=== PATIENT | male | born 1940 | race Caucasian/White ===

== ENCOUNTER 2016-09-29 17:43 | Inpatient (IN) | payer OTHER ==
[2016-09-29] VITALS (7 sets, daily range): BP systolic 126–156; BP diastolic 38–63
[~2016-09-29] VITALS: Ht 172.7 cm; Wt 64.3 kg
[~2016-09-29 17:43] MED LIST: ALBU8.5H3 INH; ASCO10004 PO; ASPI-770 PO; ATOR40TA PO; CARV6.2512 PO; CITA20TA9 PO; GABA300C10 PO; IBUP200C PO; LORA10TA75 PO; MULT-6 PO; MULT1TAB13 PO; OXYC-229 PO; OXYC15TA PO; PANT40TA5 PO; QUIN40TA7 PO; TIOT18CA INH; TRAM50TA2 PO; VERA180C2 PO
[2016-09-29] MEDS ORDERED: SODIUM CHLORIDE 0.9% 1,000 ML IV ONE (18:19)
[2016-09-29] MEDS ORDERED: PANTOPRAZOLE 40 MG IV IVPush ONE (18:30)
[2016-09-29] MEDS ORDERED: SODIUM CHLORIDE FLUSH 10ML SYR IVF ONE (18:30)
[2016-09-29] MEDS ORDERED: ONDANSETRON 2MG/ML, 2ML IVPush ONE (18:30)
[2016-09-29] MEDS ORDERED: ONDANSETRON 2MG/ML, 2ML ONE (18:51)
[2016-09-29] MEDS ORDERED: PANTOPRAZOLE 40 MG IV ONE (18:51)
[2016-09-29] MEDS: PANTOPRAZOLE 80 MG in SODIUM CHLORIDE 0.9% 100 ML IV SCH ×2 (18:55→21:00)
[2016-09-29 19:11] LABS: IS PT STATUS REG ER OR PRE ER? YES
[2016-09-29 19:15] LABS: ASPARTATE AMINO TRANSFERASE 13 U/L (15-37); BLOOD UREA NITROGEN 20 mg/dL (7-18)
[2016-09-29 19:32] LABS: ANISOCYTOSIS 2+
[2016-09-29 19:34] LABS: OVALOCYTES 1+; POIKILOCYTOSIS 2+; POLYCHROMASIA 1+
[2016-09-29 19:38] LABS: ACANTHOCYTES 1+; HYPOCHROMIA 1+
[2016-09-29 19:39] LABS: GIANT PLATELETS 1+; LARGE PLATELETS 1+
[2016-09-29] MEDS ORDERED: OMNIPAQUE 350 MG/ML, 100ML BOTTLE ONE (20:35)
[2016-09-29] MEDS ORDERED: POTASSIUM CHLORIDE 40 MEQ in SODIUM CHLORIDE 0.9% 500 ML IV ONE (21:00)
[2016-09-29] MEDS: GABAPENTIN 300 MG CAPSULE PO SCH (21:00)
[2016-09-29] MEDS ORDERED: DEXTROSE 4 GM TAB.CHEW PO PRN (21:00)
[2016-09-29] MEDS ORDERED: CARVEDILOL 6.25 MG TABLET PO SCH (21:00)
[2016-09-29] MEDS ORDERED: GLUCAGON 1 MG IM PRN (21:00)
[2016-09-29] MEDS ORDERED: DEXTROSE 50%, 50ML SYRINGE IVPush PRN (21:00)
[2016-09-29] MEDS ORDERED: OXYcodone IR 5MG TABLET PO PRN (21:00)
[2016-09-29] MEDS: SODIUM CHLORIDE 0.9% 1,000 ML IV SCH (23:24)
[2016-09-29] MEDS: SODIUM CHLORIDE FLUSH 10ML SYR IVF SCH (23:25)
[2016-09-29] MEDS ORDERED: GOLYTELY 4,000ML ORAL.SOL PO ONE (23:55)
[2016-09-30] VITALS (9 sets, daily range): BP systolic 120–158; BP diastolic 38–74
[2016-09-30] MEDS: PANTOPRAZOLE 80 MG in SODIUM CHLORIDE 0.9% 100 ML IV SCH ×3 (04:36→20:44)
[2016-09-30] MEDS: ATORVASTATIN 40 MG TABLET PO SCH ×2 (04:37→21:53)
[2016-09-30] MEDS: CARVEDILOL 6.25 MG TABLET PO SCH ×2 (04:37→04:42)
[2016-09-30 04:59] LABS: ASPARTATE AMINO TRANSFERASE 14 U/L (15-37); BLOOD UREA NITROGEN 14 mg/dL (7-18)
[2016-09-30] MEDS ORDERED: IPRATROPIUM 0.5 MG/2.5 ML INHA NPPB SCH (05:00)
[2016-09-30] MEDS: INSULIN ASPART 100 UNITS/ML, PEN SQ-INSULIN SCH ×5 (05:43→21:00)
[2016-09-30] MEDS: SODIUM CHLORIDE 0.9% 1,000 ML IV SCH ×2 (08:02→21:22)
[2016-09-30] MEDS: SODIUM CHLORIDE FLUSH 10ML SYR IVF SCH ×2 (09:00→21:51)
[2016-09-30] MEDS: ALBUTEROL/IPRATROPIUM 2.5MG/0.5MG, 3 ML NPPB SCH ×2 (09:00→20:50)
[2016-09-30] MEDS ORDERED: MORPHINE SULFATE 4 MG/ML, 1ML IVPush PRN (10:30)
[2016-09-30] MEDS: GABAPENTIN 300 MG CAPSULE PO SCH ×3 (11:12→21:53)
[2016-10-01 03:23] VITALS: BP 137/58
[2016-10-01] MEDS: PANTOPRAZOLE 80 MG in SODIUM CHLORIDE 0.9% 100 ML IV SCH ×2 (03:26→21:10)
[2016-10-01 03:41] LABS: BLOOD UREA NITROGEN 10 mg/dL (7-18)
[2016-10-01 03:46] LABS: DIFF TOTAL CELLS COUNTED 100 CELL DIFF
[2016-10-01 03:56] LABS: VERIFY COUNTS? YES
[2016-10-01 03:57] LABS: ANISOCYTOSIS 1+; HYPOCHROMIA 1+
[2016-10-01 03:58] LABS: OVALOCYTES 1+; POIKILOCYTOSIS 1+
[2016-10-01 03:59] LABS: GIANT PLATELETS 1+; LARGE PLATELETS 1+
[2016-10-01] MEDS: INSULIN ASPART 100 UNITS/ML, PEN SQ-INSULIN SCH ×4 (07:00→21:50)
[2016-10-01 07:24] VITALS: BP 133/52
[2016-10-01] MEDS: SODIUM CHLORIDE FLUSH 10ML SYR IVF SCH ×2 (08:45→21:10)
[2016-10-01] MEDS: GABAPENTIN 300 MG CAPSULE PO SCH ×3 (08:47→21:10)
[2016-10-01] MEDS: CARVEDILOL 6.25 MG TABLET PO SCH ×2 (08:51→17:57)
[2016-10-01] MEDS ORDERED: PHENYLEPHRINE 10 MG/ML ONE (11:18)
[2016-10-01] MEDS ORDERED: PROPOFOL 10 MG/ML, 20ML ONE (11:18)
[2016-10-01] MEDS ORDERED: METOCLOPRAMIDE 5 MG/ML, 2ML IV PRN (11:30)
[2016-10-01] MEDS ORDERED: OXYcodone 5 MG/5 ML ORAL.SOL UDC PO PRN (11:30)
[2016-10-01] MEDS ORDERED: hydrALAzine 20 MG/ML, 1ML IV PRN (11:30)
[2016-10-01] MEDS ORDERED: ACETAMINOPHEN 325 MG TABLET PO PRN (11:30)
[2016-10-01] MEDS ORDERED: PROMETHAZINE 25 MG/ML, 1ML IV PRN (11:30)
[2016-10-01] MEDS ORDERED: ONDANSETRON 2MG/ML, 2ML IVPush PRN (11:30)
[2016-10-01] MEDS ORDERED: LABETALOL 5MG/ML, 20ML IV PRN (11:30)
[2016-10-01] MEDS ORDERED: MIDAZOLAM 1 MG/ML, 2ML IV PRN (11:30)
[2016-10-01] MEDS ORDERED: MEPERIDINE/PF 25MG/0.5ML IVPush PRN (11:30)
[2016-10-01] MEDS ORDERED: FENTANYL PF 100 MCG/2ML IV PRN (11:30)
[2016-10-01] MEDS ORDERED: HYDROmorphone 1 MG/ML, 1ML IV PRN (11:30)
[2016-10-01 13:07] VITALS: BP 142/58
[2016-10-01] MEDS: SODIUM CHLORIDE 0.9% 1,000 ML IV SCH (17:57)
[2016-10-01 20:10] VITALS: BP 142/57
[2016-10-01] MEDS: ATORVASTATIN 40 MG TABLET PO SCH (21:10)
[2016-10-02 02:56] VITALS: BP 130/50
[2016-10-02 03:13] LABS: BLOOD UREA NITROGEN 10 mg/dL (7-18)
[2016-10-02 03:27] LABS: DIFF TOTAL CELLS COUNTED 100 CELL DIFF
[2016-10-02 03:33] LABS: VERIFY COUNTS? YES
[2016-10-02 03:35] LABS: ANISOCYTOSIS 1+; GIANT PLATELETS 1+; HYPOCHROMIA 1+; LARGE PLATELETS 1+; OVALOCYTES 1+; POIKILOCYTOSIS 1+
[2016-10-02] MEDS: CARVEDILOL 6.25 MG TABLET PO SCH (05:21)
[2016-10-02] MEDS: PANTOPRAZOLE 80 MG in SODIUM CHLORIDE 0.9% 100 ML IV SCH (05:27)
[2016-10-02] MEDS: INSULIN ASPART 100 UNITS/ML, PEN SQ-INSULIN SCH (07:00)
[2016-10-02 08:00] VITALS: BP 126/49
[2016-10-02] MEDS ORDERED: ALBUTEROL/IPRATROPIUM 2.5MG/0.5MG, 3 ML NPPB PRN (09:00)
[2016-10-02] MEDS: SODIUM CHLORIDE FLUSH 10ML SYR IVF SCH (09:00)
[2016-10-02] MEDS: SODIUM CHLORIDE 0.9% 1,000 ML IV SCH (09:42)
[2016-10-02] MEDS: GABAPENTIN 300 MG CAPSULE PO SCH (09:42)
[2016-10-02 12:41] VITALS: BP 143/61
== END 2016-10-02 13:37 | disposition home or self-care (01) | DRG 393 ==
LOC: ED 19:47 → EDIP 19:50 → CCU 09-30 07:06 → 3NW 09-30 11:46
PROVIDERS: ADMIT Internal Medicine; ATTEND Internal Medicine
PROC: 30233N1 Transfusion of Nonautologous Red Blood Cells into Peripheral Vein, Percutaneous Approach (ICD-10-PCS; 2016-09-29)
PROC: 0DBN8ZZ Excision of Sigmoid Colon, Via Natural or Artificial Opening Endoscopic (ICD-10-PCS; principal; 2016-10-01 11:00)
DX: D12.5 Benign neoplasm of sigmoid colon (principal); E43 Unspecified severe protein-calorie malnutrition; D62 Acute posthemorrhagic anemia; K55.9 Vascular disorder of intestine, unspecified; J98.11 Atelectasis; K21.9 Gastro-esophageal reflux disease without esophagitis; E87.6 Hypokalemia; D12.0 Benign neoplasm of cecum; D75.89 Other specified diseases of blood and blood-forming organs; E11.21 Type 2 diabetes mellitus with diabetic nephropathy; E11.40 Type 2 diabetes mellitus with diabetic neuropathy, unspecified; E11.51 Type 2 diabetes mellitus with diabetic peripheral angiopathy without gangrene; E27.9 Disorder of adrenal gland, unspecified; E78.5 Hyperlipidemia, unspecified; F10.21 Alcohol dependence, in remission; F17.200 Nicotine dependence, unspecified, uncomplicated; I10 Essential (primary) hypertension; I70.1 Atherosclerosis of renal artery; J44.9 Chronic obstructive pulmonary disease, unspecified; I51.7 Cardiomegaly; I34.0 Nonrheumatic mitral (valve) insufficiency; K57.30 Diverticulosis of large intestine without perforation or abscess without bleeding; K64.8 Other hemorrhoids; K80.20 Calculus of gallbladder without cholecystitis without obstruction; E55.9 Vitamin D deficiency, unspecified; M19.90 Unspecified osteoarthritis, unspecified site; M48.06 Spinal stenosis, lumbar region; Z80.8 Family history of malignant neoplasm of other organs or systems; Z87.01 Personal history of pneumonia (recurrent); Z88.0 Allergy status to penicillin; Z82.49 Family history of ischemic heart disease and other diseases of the circulatory system
CPT/HCPCS: 36415; 71010; 74174; 80048; 80053; 81003; 82607; 82746; 82962; 83605; 83690; 83735; 84443; 84484; 85014; 85018; 85025; 85610; 85730; 86677; 86850; 86900; 86923; 87081; 88305; 93005; 93306; 94640; 96365; 96366; 96368; 96375; J2405; J2704; J3480; J7620; Q9967; C9113; J2370; J7030; J7040; P9016

== ENCOUNTER 2016-11-14 14:24 | Inpatient (IN) | payer OTHER ==
[~2016-11-14] VITALS: Ht 172.7 cm; Wt 59.8 kg
[2016-11-14] MEDS ORDERED: SODIUM CHLORIDE 0.9% 1,000 ML IV ONE (14:41)
[2016-11-14] MEDS ORDERED: SODIUM CHLORIDE 0.9% 1,000ML IVBOLUS ONE (15:00)
[2016-11-14 15:14] LABS: BLOOD UREA NITROGEN 12 mg/dL (7-18)
[2016-11-14 15:17] LABS: ASPARTATE AMINO TRANSFERASE 9 U/L (15-37)
[2016-11-14] MEDS ORDERED: PANTOPRAZOLE 80 MG in SODIUM CHLORIDE 0.9% 50 ML IVPB ONE (15:30)
[2016-11-14 15:39] LABS: DIFF TOTAL CELLS COUNTED 100 CELL DIFF; IS PT STATUS REG ER OR PRE ER? YES
[2016-11-14 15:46] LABS: ANISOCYTOSIS 2+
[2016-11-14 15:47] LABS: OVALOCYTES 1+; POIKILOCYTOSIS 1+
[2016-11-14 15:48] LABS: ACANTHOCYTES 1+; SCHISTOCYTES 1+
[2016-11-14 15:49] LABS: GIANT PLATELETS 1+; LARGE PLATELETS 1+
[2016-11-14 15:50] LABS: VERIFY COUNTS? YES
[2016-11-14] MEDS: PANTOPRAZOLE 80 MG in SODIUM CHLORIDE 0.9% 100 ML IV SCH ×2 (15:54→22:48)
[2016-11-14 16:39] VITALS: BP 113/77
[2016-11-14 18:30] VITALS: BP 112/46
[2016-11-14] MEDS ORDERED: ENALAPRILAT 1.25 MG/ML, 2ML IVPush PRN (18:30)
[2016-11-14] MEDS ORDERED: LABETALOL 5MG/ML, 20ML IVPush PRN (18:30)
[2016-11-14] MEDS ORDERED: OXYcodone IR 5MG TABLET ONE (18:43)
[2016-11-14] MEDS: OXYcodone IR 5MG TABLET PO PRN (18:44)
[2016-11-14 19:10] VITALS: BP 128/38
[2016-11-14 21:45] VITALS: BP 129/56
[2016-11-14] MEDS: GABAPENTIN 300 MG CAPSULE PO SCH (22:51)
[2016-11-15 00:43] LABS: DIFF TOTAL CELLS COUNTED 100 CELL DIFF
[2016-11-15 00:52] LABS: VERIFY COUNTS? YES
[2016-11-15 00:53] LABS: ACANTHOCYTES 1+; ANISOCYTOSIS 2+; HYPOCHROMIA 1+; SCHISTOCYTES 1+
[2016-11-15 00:54] LABS: LARGE PLATELETS 1+; MICROCYTOSIS 1+; OVALOCYTES 1+
[2016-11-15 02:00] VITALS: BP 128/55
[2016-11-15 05:41] LABS: BLOOD UREA NITROGEN 12 mg/dL (7-18)
[2016-11-15 06:20] LABS: DIFF TOTAL CELLS COUNTED 100 CELL DIFF
[2016-11-15 06:21] LABS: ACANTHOCYTES 1+; ANISOCYTOSIS 1+; DYSPLASTIC NEUTROPHILS 2+; GIANT PLATELETS 1+; LARGE PLATELETS 1+; VERIFY COUNTS? YES
[2016-11-15 06:22] LABS: HYPOCHROMIA 1+
[2016-11-15 06:23] LABS: ECHINOCYTES 1+; SCHISTOCYTES 1+
[2016-11-15 08:30] VITALS: BP 128/58
[2016-11-15] MEDS: CARVEDILOL 6.25 MG TABLET PO SCH ×2 (09:16→20:30)
[2016-11-15] MEDS: PANTOPRAZOLE 40 MG IV IVPush SCH (09:16)
[2016-11-15] MEDS: GABAPENTIN 300 MG CAPSULE PO SCH ×3 (09:16→20:30)
[2016-11-15] MEDS: QUINAPRIL 20MG TABLET PO SCH (09:18)
[2016-11-15 12:15] VITALS: BP 118/48
[2016-11-15] MEDS: PANTOPRAZOLE 80 MG in SODIUM CHLORIDE 0.9% 100 ML IV SCH (12:37)
[2016-11-15] MEDS: FUROSEMIDE 20 MG/2 ML IV SCH (13:17)
[2016-11-15 20:00] VITALS: BP 117/47
[2016-11-15 20:25] VITALS: BP 106/43
[2016-11-15] MEDS: ATORVASTATIN 40 MG TABLET PO SCH (20:30)
[2016-11-15] MEDS: OXYcodone IR 5MG TABLET PO PRN (21:13)
[2016-11-16] VITALS (10 sets, daily range): BP systolic 104–134; BP diastolic 44–64
[2016-11-16 05:15] LABS: BLOOD UREA NITROGEN 11 mg/dL (7-18)
[2016-11-16 07:10] LABS: DIFF TOTAL CELLS COUNTED 100 CELL DIFF
[2016-11-16 07:17] LABS: ANISOCYTOSIS 1+; ECHINOCYTES 1+; VERIFY COUNTS? YES
[2016-11-16 07:18] LABS: SCHISTOCYTES 1+
[2016-11-16 07:19] LABS: LARGE PLATELETS 1+
[2016-11-16] MEDS: GABAPENTIN 300 MG CAPSULE PO SCH ×3 (08:55→21:04)
[2016-11-16] MEDS: QUINAPRIL 20MG TABLET PO SCH (08:55)
[2016-11-16] MEDS: PANTOPRAZOLE 40 MG IV IVPush SCH (08:55)
[2016-11-16] MEDS: FUROSEMIDE 20 MG/2 ML IV SCH (08:55)
[2016-11-16] MEDS: CARVEDILOL 6.25 MG TABLET PO SCH ×2 (08:55→21:04)
[2016-11-16] MEDS ORDERED: POTASSIUM CHLORIDE 20 MEQ TAB.ER.PRT PO SCH (09:30)
[2016-11-16] MEDS ORDERED: LIDOCAINE 1%, 20ML ONE (14:38)
[2016-11-16] MEDS ORDERED: MIDAZOLAM 1 MG/ML, 5ML ONE (14:58)
[2016-11-16] MEDS ORDERED: FLUMAZENIL 0.1 MG/1 ML, 5ML ONE (14:59)
[2016-11-16] MEDS ORDERED: FENTANYL PF 100 MCG/2ML ONE (14:59)
[2016-11-16] MEDS ORDERED: NALOXONE 1 MG/ML, 2ML ONE (14:59)
[2016-11-16] MEDS ORDERED: FUROSEMIDE 20 MG/2 ML IV PRN (15:00)
[2016-11-16] MEDS: ATORVASTATIN 40 MG TABLET PO SCH (21:04)
[2016-11-17 01:23] VITALS: BP 126/52
[2016-11-17 02:00] VITALS: BP 130/60
[2016-11-17] MEDS ORDERED: FUROSEMIDE 20 MG/2 ML IV ONE (04:30)
== END 2016-11-17 07:30 | disposition home or self-care (01) | DRG 802 ==
LOC: ED 16:34 → EDIP 16:35 → ED 17:21 → 4EST 21:47
PROVIDERS: ADMIT Family Medicine; ATTEND Family Medicine
PROC: 30233N1 Transfusion of Nonautologous Red Blood Cells into Peripheral Vein, Percutaneous Approach (ICD-10-PCS; 2016-11-14)
PROC: 0QB23ZX Excision of Right Pelvic Bone, Percutaneous Approach, Diagnostic (ICD-10-PCS; principal; 2016-11-16)
PROC: 07DR3ZX Extraction of Iliac Bone Marrow, Percutaneous Approach, Diagnostic (ICD-10-PCS; 2016-11-16)
PROC: 30233N1 Transfusion of Nonautologous Red Blood Cells into Peripheral Vein, Percutaneous Approach (ICD-10-PCS; 2016-11-16)
DX: D46.9 Myelodysplastic syndrome, unspecified (principal); E43 Unspecified severe protein-calorie malnutrition; D61.818 Other pancytopenia; K92.2 Gastrointestinal hemorrhage, unspecified; I11.0 Hypertensive heart disease with heart failure; I50.9 Heart failure, unspecified; J44.9 Chronic obstructive pulmonary disease, unspecified; D50.0 Iron deficiency anemia secondary to blood loss (chronic); E78.5 Hyperlipidemia, unspecified; E11.40 Type 2 diabetes mellitus with diabetic neuropathy, unspecified; E87.6 Hypokalemia; K21.9 Gastro-esophageal reflux disease without esophagitis; F17.290 Nicotine dependence, other tobacco product, uncomplicated; G31.84 Mild cognitive impairment of uncertain or unknown etiology; G89.29 Other chronic pain; Z83.3 Family history of diabetes mellitus; Z82.49 Family history of ischemic heart disease and other diseases of the circulatory system; Z82.5 Family history of asthma and other chronic lower respiratory diseases; I25.2 Old myocardial infarction; Z91.19 Patient's noncompliance with other medical treatment and regimen; Z88.0 Allergy status to penicillin; Z95.820 Peripheral vascular angioplasty status with implants and grafts
CPT/HCPCS: 36415; 71010; 77012; 80048; 80053; 81003; 82140; 83605; 83690; 84484; 85025; 85097; 85610; 85730; 86850; 86900; 86923; 88305; 88311; 88313; 88360; 93005; 96361; 96365; 99156; 99157; G0364; J2250; J3010; J3490; 92523-GN; C9113; J1940; J2310; J7030; P9016

== ENCOUNTER 2016-12-13 16:32 | Inpatient (IN) | payer OTHER ==
[~2016-12-13] VITALS: Ht 172.7 cm; Wt 63.8 kg
[2016-12-13] VITALS (9 sets, daily range): BP systolic 100–121; BP diastolic 46–58
[2016-12-13] MEDS ORDERED: SODIUM CHLORIDE 0.9% 1,000 ML IV ONE ×2 (16:43→19:04)
[2016-12-13] MEDS ORDERED: SODIUM CHLORIDE FLUSH 10ML SYR IVF ONE (17:00)
[2016-12-13 17:13] LABS: ASPARTATE AMINO TRANSFERASE 10 U/L (15-37); BLOOD UREA NITROGEN 15 mg/dL (7-18)
[2016-12-13 17:37] LABS: DIFF TOTAL CELLS COUNTED 100 CELL DIFF
[2016-12-13 18:05] LABS: ANISOCYTOSIS 1+; HYPOCHROMIA 1+
[2016-12-13 18:06] LABS: ECHINOCYTES 1+; OVALOCYTES 1+; POIKILOCYTOSIS 2+
[2016-12-13 18:07] LABS: SCHISTOCYTES 1+
[2016-12-13 18:08] LABS: DYSPLASTIC NEUTROPHILS 2+
[2016-12-13 18:09] LABS: GIANT PLATELETS 1+; LARGE PLATELETS 1+
[2016-12-13 18:10] LABS: VERIFY COUNTS? YES
[2016-12-13 18:26] LABS: IS PT STATUS REG ER OR PRE ER? YES
[2016-12-13] MEDS ORDERED: MORPHINE SULFATE 4 MG/ML, 1ML IVPush ONE (18:30)
[2016-12-13] MEDS ORDERED: PLEASE ENTER HEIGHT AND WEIGHT MC SCH ×2 (18:30→21:00)
[2016-12-13] MEDS ORDERED: ACETAMINOPHEN 500 MG TABLET ONE (19:27)
[2016-12-13] MEDS ORDERED: CEFTRIAXONE PMX 1GM/50ML 50 ML IVPB ONE (19:30)
[2016-12-13] MEDS ORDERED: CEFTRIAXONE 1,000 MG IM SCH (19:30)
[2016-12-13] MEDS ORDERED: ACETAMINOPHEN 500 MG TABLET PO ONE (19:30)
[2016-12-13] MEDS ORDERED: ACETAMINOPHEN 325 MG TABLET PO PRN (19:30)
[2016-12-13] MEDS: INSULIN REGULAR 100 UNITS/ML, 3ML VIAL SQ-INSULIN SCH (21:00)
[2016-12-13] MEDS: CEFTRIAXONE PMX 1GM/50ML 50 ML IVPB SCH (21:42)
[2016-12-13] MEDS: SODIUM CHLORIDE 0.9% 1,000 ML IV SCH (21:42)
[2016-12-13] MEDS: GABAPENTIN 300 MG CAPSULE PO SCH (21:43)
[2016-12-13] MEDS: ATORVASTATIN 40 MG TABLET PO SCH (21:43)
[2016-12-13] MEDS: CARVEDILOL 6.25 MG TABLET PO SCH (21:44)
[2016-12-13 23:17] LABS: IS PT STATUS REG ER OR PRE ER? NO
[2016-12-14] VITALS (7 sets, daily range): BP systolic 94–121; BP diastolic 48–67
[2016-12-14] MEDS ORDERED: ASPIRIN 81 MG TABLET CHEW PO ONE (01:00)
[2016-12-14] MEDS ORDERED: FUROSEMIDE 20 MG/2 ML IV ONE (01:00)
[2016-12-14 06:33] LABS: BLOOD UREA NITROGEN 15 mg/dL (7-18)
[2016-12-14 06:34] LABS: IS PT STATUS REG ER OR PRE ER? NO
[2016-12-14 07:28] LABS: DIFF TOTAL CELLS COUNTED 100 CELL DIFF
[2016-12-14 07:33] LABS: VERIFY COUNTS? YES
[2016-12-14 07:34] LABS: ACANTHOCYTES 1+; ANISOCYTOSIS 1+; DYSPLASTIC NEUTROPHILS 3+; HYPOCHROMIA 1+; OVALOCYTES 1+; POIKILOCYTOSIS 1+
[2016-12-14] MEDS: INSULIN REGULAR 100 UNITS/ML, 3ML VIAL SQ-INSULIN SCH ×4 (08:16→20:35)
[2016-12-14] MEDS: PANTOPROZOLE 40MG TABLET PO SCH (08:18)
[2016-12-14] MEDS: GABAPENTIN 300 MG CAPSULE PO SCH ×3 (08:19→20:35)
[2016-12-14] MEDS: CARVEDILOL 6.25 MG TABLET PO SCH ×2 (08:19→20:34)
[2016-12-14] MEDS: QUINAPRIL 20MG TABLET PO SCH (08:19)
[2016-12-14] MEDS: ASCORBIC ACID 500 MG TABLET PO SCH (08:19)
[2016-12-14 12:34] LABS: IS PT STATUS REG ER OR PRE ER? NO
[2016-12-14] MEDS: SODIUM CHLORIDE 0.9% 1,000 ML IV SCH (16:52)
[2016-12-14] MEDS: CEFTRIAXONE PMX 1GM/50ML 50 ML IVPB SCH (20:34)
[2016-12-14] MEDS: ATORVASTATIN 40 MG TABLET PO SCH (20:35)
[2016-12-15 00:42] VITALS: BP 113/64
[2016-12-15 05:27] LABS: BLOOD UREA NITROGEN 14 mg/dL (7-18)
[2016-12-15 06:40] LABS: DIFF TOTAL CELLS COUNTED 100 CELL DIFF
[2016-12-15 06:44] LABS: ACANTHOCYTES 1+; ANISOCYTOSIS 1+; VERIFY COUNTS? YES
[2016-12-15 06:45] LABS: ECHINOCYTES 1+; POIKILOCYTOSIS 1+; SCHISTOCYTES 1+
[2016-12-15 06:46] LABS: DYSPLASTIC NEUTROPHILS 3+; LARGE PLATELETS 1+
[2016-12-15 07:52] VITALS: BP 124/50
[2016-12-15] MEDS: PANTOPROZOLE 40MG TABLET PO SCH (07:53)
[2016-12-15] MEDS: INSULIN REGULAR 100 UNITS/ML, 3ML VIAL SQ-INSULIN SCH ×4 (07:53→21:00)
[2016-12-15] MEDS: GABAPENTIN 300 MG CAPSULE PO SCH ×3 (07:53→21:01)
[2016-12-15] MEDS: ASCORBIC ACID 500 MG TABLET PO SCH (07:54)
[2016-12-15] MEDS: CARVEDILOL 6.25 MG TABLET PO SCH ×2 (07:54→21:01)
[2016-12-15] MEDS: QUINAPRIL 20MG TABLET PO SCH (07:54)
[2016-12-15] MEDS: SODIUM CHLORIDE 0.9% 1,000 ML IV SCH (11:56)
[2016-12-15 17:50] VITALS: BP 128/47
[2016-12-15 18:57] VITALS: BP 138/54
[2016-12-15] MEDS ORDERED: OXYcodone/APAP 10/325MG TABLET PO PRN (20:30)
[2016-12-15] MEDS: CEFTRIAXONE PMX 1GM/50ML 50 ML IVPB SCH (21:00)
[2016-12-15] MEDS: ATORVASTATIN 40 MG TABLET PO SCH (21:01)
[2016-12-16 00:46] VITALS: BP 126/54
[2016-12-16 05:06] LABS: BLOOD UREA NITROGEN 10 mg/dL (7-18)
[2016-12-16 05:58] LABS: DIFF TOTAL CELLS COUNTED 100 CELL DIFF
[2016-12-16 06:02] LABS: VERIFY COUNTS? YES
[2016-12-16 06:03] LABS: ACANTHOCYTES 1+; ANISOCYTOSIS 1+; ECHINOCYTES 1+; OVALOCYTES 1+; POIKILOCYTOSIS 1+
[2016-12-16 06:04] LABS: DYSPLASTIC NEUTROPHILS 3+; LARGE PLATELETS 1+
[2016-12-16] MEDS: INSULIN REGULAR 100 UNITS/ML, 3ML VIAL SQ-INSULIN SCH ×4 (07:00→21:00)
[2016-12-16] MEDS: GABAPENTIN 300 MG CAPSULE PO SCH ×3 (08:40→21:52)
[2016-12-16] MEDS: QUINAPRIL 20MG TABLET PO SCH (08:40)
[2016-12-16] MEDS: ASCORBIC ACID 500 MG TABLET PO SCH (08:40)
[2016-12-16] MEDS: PANTOPROZOLE 40MG TABLET PO SCH (08:40)
[2016-12-16] MEDS: CARVEDILOL 6.25 MG TABLET PO SCH ×2 (08:41→21:52)
[2016-12-16 08:46] VITALS: BP 142/66
[2016-12-16] MEDS ORDERED: REGADENOSON 0.4 MG/5 ML SYRINGE ONE (09:14)
[2016-12-16] MEDS: SODIUM CHLORIDE 0.9% 1,000 ML IV SCH (13:48)
[2016-12-16 14:00] VITALS: BP 135/71
[2016-12-16 19:50] VITALS: BP 120/54
[2016-12-16] MEDS: ATORVASTATIN 40 MG TABLET PO SCH (21:52)
[2016-12-16] MEDS: CEFTRIAXONE PMX 1GM/50ML 50 ML IVPB SCH (21:52)
[2016-12-17] VITALS (13 sets, daily range): BP systolic 116–154; BP diastolic 43–69
[2016-12-17 06:54] LABS: BLOOD UREA NITROGEN 8 mg/dL (7-18)
[2016-12-17 07:13] LABS: DIFF TOTAL CELLS COUNTED 100 CELL DIFF
[2016-12-17 07:20] LABS: VERIFY COUNTS? YES
[2016-12-17 07:21] LABS: ACANTHOCYTES 1+; ANISOCYTOSIS 1+
[2016-12-17 07:22] LABS: OVALOCYTES 1+; POIKILOCYTOSIS 1+
[2016-12-17 07:23] LABS: DYSPLASTIC NEUTROPHILS 3+; LARGE PLATELETS 1+
[2016-12-17] MEDS ORDERED: REGADENOSON 0.4 MG/5 ML SYRINGE ONE (07:47)
[2016-12-17] MEDS: ASCORBIC ACID 500 MG TABLET PO SCH (09:57)
[2016-12-17] MEDS: QUINAPRIL 20MG TABLET PO SCH (09:57)
[2016-12-17] MEDS: GABAPENTIN 300 MG CAPSULE PO SCH ×3 (09:57→22:12)
[2016-12-17] MEDS: PANTOPROZOLE 40MG TABLET PO SCH (09:57)
[2016-12-17] MEDS: CARVEDILOL 6.25 MG TABLET PO SCH ×2 (09:58→22:12)
[2016-12-17] MEDS: INSULIN REGULAR 100 UNITS/ML, 3ML VIAL SQ-INSULIN SCH ×4 (09:58→21:00)
[2016-12-17] MEDS: SODIUM CHLORIDE 0.9% 1,000 ML IV SCH (09:59)
[2016-12-17] MEDS ORDERED: ACETAMINOPHEN 325 MG TABLET PO ONE (15:30)
[2016-12-17] MEDS: CEFTRIAXONE PMX 1GM/50ML 50 ML IVPB SCH (22:12)
[2016-12-17] MEDS: ATORVASTATIN 40 MG TABLET PO SCH (22:12)
[2016-12-18 03:20] VITALS: BP 155/63
[2016-12-18 06:36] LABS: DIFF TOTAL CELLS COUNTED 100 CELL DIFF
[2016-12-18] MEDS: INSULIN REGULAR 100 UNITS/ML, 3ML VIAL SQ-INSULIN SCH ×2 (07:00→11:00)
[2016-12-18 07:30] LABS: VERIFY COUNTS? YES
[2016-12-18 07:31] LABS: ACANTHOCYTES 1+; ANISOCYTOSIS 1+; OVALOCYTES 1+; POIKILOCYTOSIS 1+
[2016-12-18 07:32] LABS: DYSPLASTIC NEUTROPHILS 3+; LARGE PLATELETS 1+
[2016-12-18 07:55] VITALS: BP 151/59
[2016-12-18] MEDS: ASCORBIC ACID 500 MG TABLET PO SCH (08:01)
[2016-12-18] MEDS: QUINAPRIL 20MG TABLET PO SCH (08:01)
[2016-12-18] MEDS: CARVEDILOL 6.25 MG TABLET PO SCH (08:01)
[2016-12-18] MEDS: GABAPENTIN 300 MG CAPSULE PO SCH (08:01)
[2016-12-18] MEDS: PANTOPROZOLE 40MG TABLET PO SCH (08:01)
== END 2016-12-18 15:13 | disposition home or self-care (01) | DRG 280 ==
LOC: ED 18:21 → EDIP 18:38 → 5SO 20:12 → DCLOUNGE 12-18 14:50
PROVIDERS: ADMIT Family Medicine; ATTEND Family Medicine
PROC: 30233N1 Transfusion of Nonautologous Red Blood Cells into Peripheral Vein, Percutaneous Approach (ICD-10-PCS; principal; 2016-12-13)
PROC: 30233N1 Transfusion of Nonautologous Red Blood Cells into Peripheral Vein, Percutaneous Approach (ICD-10-PCS; 2016-12-14)
PROC: 30233N1 Transfusion of Nonautologous Red Blood Cells into Peripheral Vein, Percutaneous Approach (ICD-10-PCS; 2016-12-17)
DX: I21.4 Non-ST elevation (NSTEMI) myocardial infarction (principal); J18.9 Pneumonia, unspecified organism; D46.22 Refractory anemia with excess of blasts 2; J44.0 Chronic obstructive pulmonary disease with (acute) lower respiratory infection; D75.81 Myelofibrosis; D46.9 Myelodysplastic syndrome, unspecified; I50.9 Heart failure, unspecified; I45.10 Unspecified right bundle-branch block; E78.5 Hyperlipidemia, unspecified; I11.0 Hypertensive heart disease with heart failure; D63.8 Anemia in other chronic diseases classified elsewhere; D69.6 Thrombocytopenia, unspecified; E11.40 Type 2 diabetes mellitus with diabetic neuropathy, unspecified; E11.51 Type 2 diabetes mellitus with diabetic peripheral angiopathy without gangrene; E86.0 Dehydration; K55.20 Angiodysplasia of colon without hemorrhage; F17.210 Nicotine dependence, cigarettes, uncomplicated; G31.84 Mild cognitive impairment of uncertain or unknown etiology; G89.29 Other chronic pain; I25.110 Atherosclerotic heart disease of native coronary artery with unstable angina pectoris; F10.20 Alcohol dependence, uncomplicated; K75.9 Inflammatory liver disease, unspecified; M48.06 Spinal stenosis, lumbar region; I34.0 Nonrheumatic mitral (valve) insufficiency; I49.1 Atrial premature depolarization; K21.9 Gastro-esophageal reflux disease without esophagitis; I25.2 Old myocardial infarction; Z82.49 Family history of ischemic heart disease and other diseases of the circulatory system; Z82.5 Family history of asthma and other chronic lower respiratory diseases; Z83.3 Family history of diabetes mellitus; Z99.81 Dependence on supplemental oxygen; Z95.828 Presence of other vascular implants and grafts
CPT/HCPCS: 36415; 36430; 71010; 78452; 80048; 80053; 81003; 82962; 83605; 83735; 84145; 84484; 85025; 85610; 86850; 86900; 86923; 87040; 93005; 93017; 93306; 96360; 96361; J0696; J1815; J2785; A9502; C9898; J1940; J7030; P9016